=== PATIENT | female | born 1990 | race Caucasian/White ===

== ENCOUNTER 2019-10-05 01:34 | Emergency (ER) | payer OTHER ==
[~2019-10-05] VITALS: Ht 165.1 cm; Wt 81.6 kg
[2019-10-05 01:38] VITALS: BP 168/112
--- NOTE | 2019-10-05 01:45 | NUR ---
PT AMBULATED TO BED 7 WITH STEADY GAIT
--- NOTE | 2019-10-05 01:52 | NUR ---
29 YO F BIB SELF FOR C/C OF 5/10 URINARY PAIN WITH FREQUENCY AND L FLANK PAIN. PT STATES THAT SYMPTOMS BEGAN 1 DAY AGO. PT TOOK 800 MG OF ADVIL FOR PAIN WITH NO RELIEF OF SYMPTOMS. PT DENIES HEMATURIA, , N/V/D, FEVER, COUGH, SOB, AND TRAVEL. BED LOCKED AND IN LOWEST POSITION. SIDE RAILS X1. NKA MED HX: KIDNEY STONES NO RX
--- NOTE | 2019-10-05 01:52 | NUR ---
Dr. Acevedo examining patient.
[2019-10-05] MEDS ORDERED: SULFAMETH/TRIMETH DS 800/160MG 1 TAB PO ONE (01:55)
[2019-10-05] MEDS ORDERED: PHENAZOPYRIDINE 100 MG TAB PO ONE (01:55)
[2019-10-05 02:13] VITALS: BP 168/112
--- NOTE | 2019-10-05 02:13 | NUR ---
Patient discharged with v/s stable. Written and verbal after care instructions given and explained. Patient alert, oriented and verbalized understanding of instructions. Ambulatory with steady gait. All questions addressed prior to discharge. ID band removed. Patient advised to follow up with PMD. Rx of BACTRIM, PYRIDIUM given. Patient educated on indication of medication including possible reaction and side effects. Opportunity to ask questions provided and answered.
== END 2019-10-05 02:13 | disposition home or self-care (01) ==
LOC: MED 01:34
DX: N39.0 Urinary tract infection, site not specified (principal); Z87.19 Personal history of other diseases of the digestive system; Z98.890 Other specified postprocedural states
CPT/HCPCS: 81002; 81025; 99283

== ENCOUNTER 2020-04-09 01:46 | Emergency (ER) | payer OTHER ==
[~2020-04-09] VITALS: Ht 165.1 cm; Wt 81.6 kg
[2020-04-09 02:00] VITALS: BP 164/100
--- NOTE | 2020-04-09 02:03 | NUR ---
TO LOBBY A/W BED AMBULATORY
--- NOTE | 2020-04-09 03:05 | NUR ---
SEEN AND EXAMINED BY ZENAIDA WITH ORDERS AND CARRIED OUT.
[2020-04-09 03:06] LABS: APPEARANCE,URINE SL CLOUDY (CLEAR); BILIRUBIN,URINE NEGATIVE (NEGATIVE); BLOOD, URINE NEGATIVE (NEGATIVE); COLOR,URINE YELLOW (YELLOW); LEUKOCYTE ESTERASE ,URINE NEGATIVE (NEGATIVE); NITRITE, URINE NEGATIVE (NEGATIVE); PH,URINE 6.5 (5.0-9.0); UGLUCOSE NEGATIVE (NEGATIVE)
[2020-04-09] MEDS ORDERED: MORPHINE SULFATE 4 MG/ML SYR IM ONE (03:15)
[2020-04-09 03:17] LABS: RBC,URINE 0-5 /HPF (0-5)
--- NOTE | 2020-04-09 03:20 | NUR ---
MEDICATED PER ERMDS ORDER, TOLERATED WELL
[2020-04-09 03:41] LABS: ANION GAP 12.1 (8-16); CARBON DIOXIDE 24.2 mmol/L (21-32); CREATININE 0.8 mg/dL (0.6-1.3); POTASSIUM 4.3 mmol/L (3.5-5.1)
--- NOTE | 2020-04-09 04:50 | NUR ---
ALL RESULTS BACK AND NOTED BY ERMD AND FOR D/C
[2020-04-09 05:15] VITALS: BP 138/89
== END 2020-04-09 05:15 | disposition home or self-care (01) ==
LOC: MED 01:46
DX: N39.0 Urinary tract infection, site not specified (principal)
CPT/HCPCS: 36415; 80048; 81001; 81025; 87086; 99283; J2270

== ENCOUNTER 2020-05-13 00:40 | Emergency (ER) | payer OTHER ==
[~2020-05-13] VITALS: Ht 165.1 cm; Wt 81.2 kg
[2020-05-13 00:47] VITALS: BP 180/100
[2020-05-13] MEDS ORDERED: KETOROLAC 60 MG/2 ML VIAL IM ONE (01:00)
[2020-05-13] MEDS ORDERED: ONDANSETRON 4 MG ODT PO ONE (01:05)
[2020-05-13 01:11] VITALS: BP 180/100
== END 2020-05-13 01:11 | disposition home or self-care (01) ==
LOC: MED 00:40
DX: K08.89 Other specified disorders of teeth and supporting structures (principal); I10 Essential (primary) hypertension; Z98.890 Other specified postprocedural states
CPT/HCPCS: 96372; 99283; J1885; Q0162

== ENCOUNTER 2020-06-21 20:18 | Emergency (ER) | payer OTHER ==
[~2020-06-21] VITALS: Ht 165.1 cm; Wt 81.6 kg
[2020-06-21 20:32] VITALS: BP 205/114
--- NOTE | 2020-06-21 21:00 | NUR ---
29 Y FEMALE CAME IN WITH TOOTHACHE. PT STATES THAT SHE HAD HER DENTAL TREATMENT 2 WEEKS AGO. SHE IS CURRENTLTY TAKING IBUPROFEN. DENIES N/V/D; SKIN IS PINK/WARM/DRY; AAOX4 WITH EVEN AND STEADY GAIT; LUNGS CLEAR BL; HR EVEN AND REGULAR; PT DENIES ANY FEVER, CP, SOB, OR COUGH AT THIS TIME; PATIENT STATES PAIN OF 9/10 AT THIS TIME RADIATING TO THE RIGHT SIDE OF THE HEAD THAT STARTED THIS MORNING; VSS; PATIENT POSITIONED FOR COMFORT; HOB ELEVATED; BEDRAILS UP X2; BED DOWN. ER MADE AWARE OF PT STATUS. MEDHX: DENIES LMP WAS 06/20/20 NKA Addendum: 06/21/20 at 2118 by KIRA LUMP IN THE UPPER MOUTH
--- NOTE | 2020-06-21 21:12 | NUR ---
DR. SCHROEDER CAME TO SEE PT AT BEDSIDE
[2020-06-21] MEDS ORDERED: HYDR-5080 PO (21:18)
[2020-06-21] MEDS ORDERED: CLIN-223 PO (21:18)
[2020-06-21] MEDS: MORPHINE SULFATE 2 MG/ML SYR IM ONE (21:34)
[2020-06-21] MEDS: CLINDAMYCIN 150 MG CAP PO ONE (21:36)
--- NOTE | 2020-06-21 21:55 | NUR ---
Patient discharged with v/s stable. Written and verbal after care instructions given and explained. Patient alert, oriented and verbalized understanding of instructions. Ambulatory with steady gait. All questions addressed prior to discharge. ID band removed. Patient advised to follow up with PMD. Rx of CLINDAMYCIN AND NORCO given. Patient educated on indication of medication including possible reaction and side effects. Opportunity to ask questions provided and answered.
[2020-06-21 21:59] VITALS: BP 155/100
== END 2020-06-21 21:57 | disposition home or self-care (01) ==
LOC: MED 20:18
DX: K04.7 Periapical abscess without sinus (principal); I10 Essential (primary) hypertension; Z79.899 Other long term (current) drug therapy
CPT/HCPCS: 96372; 99283; J2270

== ENCOUNTER 2020-07-20 23:00 | Emergency (ER) | payer OTHER ==
[~2020-07-20] VITALS: Ht 165.1 cm; Wt 72.6 kg
[~2020-07-20 23:00] MED LIST: CLIN-223 PO; HYDR-5080 PO
[2020-07-20 23:02] VITALS: BP 170/90
--- NOTE | 2020-07-20 23:02 | NUR ---
TO BED AMBULATORY
--- NOTE | 2020-07-20 23:14 | NUR ---
SEE COMPLETE ASSESSMENT. PAIN IS 8/10 THROBBING PAIN IN THE RIGHT UPPER CORNER OF MOUTH. PATIENT STATES, "I'M GETTING WORK DONE AND I NOTICED TWO DAYS AGO THAT IT HURT AND MY RETAINERS DO NOT FIT. I HAVE A FOLLOW UP APPOINTMENT WITH MY DENTIST THIS COMING WEDNESDAY". NO BLEEDING; SLIGHT REDNESS NOTED IN THE UPPER RIGHT GUM. MISSING TOOTH NOTED. NKDA PMH: HTN; GALLSTONES; KIDNEY STONES MEDS: LABETALOL
[2020-07-20] MEDS ORDERED: KETOROLAC 60 MG/2 ML VIAL IM ONE (23:20)
--- NOTE | 2020-07-20 23:36 | NUR ---
Dr. Hernandez examining patient.
[2020-07-20] MEDS ORDERED: ACET-8386 PO (23:45)
--- NOTE | 2020-07-21 00:03 | NUR ---
Patient discharged with v/s stable. Written and verbal after care instructions given and explained. Patient alert, oriented and verbalized understanding of instructions. Ambulatory with steady gait. All questions addressed prior to discharge. ID band removed. Patient advised to follow up with PMD. Rx of HYDROCODONE/ACETAMINOPHEN given. Patient educated on indication of medication including possible reaction and side effects. Opportunity to ask questions provided and answered.
[2020-07-21 00:05] VITALS: BP 150/88
[2020-07-21] MEDS ORDERED: ACET-8386 PO (00:36)
== END 2020-07-21 00:03 | disposition home or self-care (01) ==
LOC: MED 23:00
DX: K08.89 Other specified disorders of teeth and supporting structures (principal); I10 Essential (primary) hypertension; N20.0 Calculus of kidney; Z79.899 Other long term (current) drug therapy
CPT/HCPCS: 96372; 99283; J1885

== ENCOUNTER 2020-09-08 22:18 | Emergency (ER) | payer OTHER ==
[~2020-09-08] VITALS: Ht 165.1 cm; Wt 79.8 kg
[~2020-09-08 22:18] MED LIST changes: +ACET-8386 PO
[2020-09-08 22:34] VITALS: BP 156/109
--- NOTE | 2020-09-08 22:38 | NUR ---
PT AMBULATORY TO LOBBY TO A/W BED.
--- NOTE | 2020-09-08 23:07 | NUR ---
PT SEEN AND ASSESSED BY ZENAIDA. NO NURSING CARE PROVIDED FOR THIS PATIENT
[2020-09-08] MEDS ORDERED: TAMS0.4C96 PO (23:09)
[2020-09-08] MEDS ORDERED: LABE100T9 PO (23:09)
[2020-09-08] MEDS ORDERED: HYDR-5080 PO (23:09)
--- NOTE | 2020-09-08 23:14 | NUR ---
Patient discharged with v/s stable. Written and verbal after care instructions given and explained. Patient alert, oriented and verbalized understanding of instructions. Ambulatory with steady gait. All questions addressed prior to discharge. ID band removed. Patient advised to follow up with PMD. Rx of NORCO, LABETALOL, AND FLOMAX given. Patient educated on indication of medication including possible reaction and side effects. Opportunity to ask questions provided and answered.
== END 2020-09-08 23:14 | disposition home or self-care (01) ==
LOC: MED 22:18
DX: Z76.0 Encounter for issue of repeat prescription (principal); I10 Essential (primary) hypertension; Z87.442 Personal history of urinary calculi
CPT/HCPCS: 99281

== ENCOUNTER 2020-09-25 19:18 | Emergency (ER) | payer OTHER ==
[~2020-09-25] VITALS: Ht 167.6 cm; Wt 81.2 kg
[~2020-09-25 19:18] MED LIST changes: +LABE100T9 PO; +TAMS0.4C96 PO
[2020-09-25 19:25] VITALS: BP 179/101
--- NOTE | 2020-09-25 20:01 | NUR ---
PATIENT AMBUALTED TO BED 5 WITH STEADY GAIT.
[2020-09-25] MEDS ORDERED: ACET-8386 PO ×2 (20:40→20:45)
[2020-09-25] MEDS ORDERED: TAMS0.4C96 PO (20:40)
[2020-09-25] MEDS ORDERED: LABE100T9 PO (20:40)
[2020-09-25] MEDS ORDERED: HYDR-5191 PO (20:43)
[2020-09-25] MEDS ORDERED: IRON65TA PO (20:43)
[2020-09-25 21:00] VITALS: BP 158/98
--- NOTE | 2020-09-25 21:00 | NUR ---
Patient discharged with v/s stable. Written and verbal after care instructions given and explained. Patient alert, oriented and verbalized understanding of instructions. Ambulatory with steady gait. All questions addressed prior to discharge. ID band removed. Patient advised to follow up with PMD. Rx of HYDROCODONE/ACETAMINOPHEN, FERROUS SULFATE, LABETALOL, FLOMAX given. Patient educated on indication of medication including possible reaction and side effects. Opportunity to ask questions provided and answered.
== END 2020-09-25 21:00 | disposition home or self-care (01) ==
LOC: MED 19:18
DX: Z87.448 Personal history of other diseases of urinary system (principal); I10 Essential (primary) hypertension; Z76.0 Encounter for issue of repeat prescription
CPT/HCPCS: 99281

== ENCOUNTER 2020-10-07 19:24 | Emergency (ER) | payer OTHER ==
[~2020-10-07] VITALS: Ht 165.1 cm; Wt 77.1 kg
[~2020-10-07 19:24] MED LIST changes: +IRON65TA PO
[2020-10-07 19:30] VITALS: BP 182/111
--- NOTE | 2020-10-07 19:38 | NUR ---
PT AMBULATED TO BED 12
--- NOTE | 2020-10-07 19:44 | NUR ---
Dr. Hernandez examining patient.
[2020-10-07] MEDS ORDERED: TAMS0.4C96 PO (19:47)
[2020-10-07] MEDS ORDERED: ACET-8386 PO (19:47)
[2020-10-07] MEDS ORDERED: IRON65TA PO (19:47)
--- NOTE | 2020-10-07 19:48 | NUR ---
Note undone in EDM - 10/07/20 at 2007 by EUFEMIA Patient discharged with v/s stable. Written and verbal after care instructions given and explained. Patient alert, oriented and verbalized understanding of instructions. Ambulatory with steady gait. All questions addressed prior to discharge. ID band removed. Patient advised to follow up with PMD. Rx of Feosol, flomax, hydrocodon-acetaminophen given. Patient educated on indication of medication including possible reaction and side effects. Opportunity to ask questions provided and answered.
--- NOTE | 2020-10-07 19:48 | NUR ---
BIB SELF FOR PRESCRIPTION REFILL. PT DENIES ANY PAIN OR DISCOMFORT AT THIS TIME. AAOx4. Elevated BP and patient reports not taking scheduled medication. PMH: CHRONIC KIDNEY STONES, HTN NKDA
[2020-10-07 20:04] VITALS: BP 162/118
--- NOTE | 2020-10-07 20:04 | NUR ---
Patient discharged with v/s stable. Written and verbal after care instructions given and explained. Patient alert, oriented and verbalized understanding of instructions. Ambulatory with steady gait. All questions addressed prior to discharge. ID band removed. Patient advised to follow up with PMD. Rx of Feosol, flomax, hydrocodon-acetaminophen given. Patient educated on indication of medication including possible reaction and side effects. Opportunity to ask questions provided and answered.
== END 2020-10-07 20:04 | disposition home or self-care (01) ==
LOC: MED 19:24
DX: N20.0 Calculus of kidney (principal); I10 Essential (primary) hypertension; Z76.0 Encounter for issue of repeat prescription; Z79.899 Other long term (current) drug therapy
CPT/HCPCS: 99281

== ENCOUNTER 2020-10-21 19:02 | Emergency (ER) | payer OTHER ==
[~2020-10-21] VITALS: Ht 165.1 cm; Wt 78.9 kg
[2020-10-21 19:09] VITALS: BP 159/97
--- NOTE | 2020-10-21 19:15 | NUR ---
PT TAKEN TO BED 3
--- NOTE | 2020-10-21 19:17 | NUR ---
MEDICATION REFILL REQUEST: NIFEDIPINE ER 60 MG ONCE A DAY FLOMAX 4 MG BID NORCO 5/325 Q 6 HOURS PRN AAOX4. VSS. MED HX: HTN, CHRONIC KIDNEY STONES ALLERGIES: BACLOFEN
--- NOTE | 2020-10-21 19:46 | NUR ---
ERMD AT BEDSIDE EXAMINING PATIENT
[2020-10-21] MEDS ORDERED: HYDROcodone/APAP 5/325 MG 1 TAB TAB PO ONE (20:10)
--- NOTE | 2020-10-21 20:13 | NUR ---
PATIENT REFUSED TO PROVIDE URINE AND REFUSED MEDICATION. MADE AWARE.
[2020-10-21] MEDS ORDERED: TAMS0.4C96 PO (20:16)
[2020-10-21 20:22] VITALS: BP 160/103
--- NOTE | 2020-10-21 20:22 | NUR ---
Patient discharged with v/s stable. Written and verbal after care instructions given and explained. Patient alert, oriented and verbalized understanding of instructions. Ambulatory with steady gait. All questions addressed prior to discharge. ID band removed. Patient advised to follow up with PMD. Rx of FLOMAX given. Patient educated on indication of medication including possible reaction and side effects. Opportunity to ask questions provided and answered.
== END 2020-10-21 20:22 | disposition home or self-care (01) ==
LOC: MED 19:02
DX: R10.9 Unspecified abdominal pain (principal); I10 Essential (primary) hypertension; Z79.899 Other long term (current) drug therapy; Z88.8 Allergy status to other drugs, medicaments and biological substances; Z87.442 Personal history of urinary calculi
CPT/HCPCS: 99283

== ENCOUNTER 2020-10-28 22:02 | Emergency (ER) | payer OTHER ==
[~2020-10-28] VITALS: Ht 165.1 cm; Wt 77.1 kg
[2020-10-28 22:15] VITALS: BP 178/84
--- NOTE | 2020-10-28 22:17 | NUR ---
TO LOBBY A/W AMBULATORY
--- NOTE | 2020-10-28 23:52 | NUR ---
PT AMBULATED TO CHAIR A
[2020-10-29] MEDS ORDERED: FERR-20 PO (00:08)
[2020-10-29] MEDS ORDERED: LABE100T9 PO (00:08)
[2020-10-29] MEDS ORDERED: TAMS0.4C96 PO (00:08)
[2020-10-29 00:40] VITALS: BP 178/84
--- NOTE | 2020-10-29 00:40 | NUR ---
PT LEFT WITHOUT D/C INSTRUCTIONS
== END 2020-10-29 00:40 | disposition home or self-care (01) ==
LOC: MED 22:02
DX: I10 Essential (primary) hypertension (principal); Z76.0 Encounter for issue of repeat prescription; Z79.899 Other long term (current) drug therapy; Z88.8 Allergy status to other drugs, medicaments and biological substances; Z87.442 Personal history of urinary calculi
CPT/HCPCS: 99281

== ENCOUNTER 2020-12-23 22:44 | Emergency (ER) | payer OTHER ==
[~2020-12-23] VITALS: Ht 165.1 cm; Wt 79.4 kg
[~2020-12-23 22:44] MED LIST changes: +FERR-20 PO
[2020-12-23 23:05] VITALS: BP 157/100
--- NOTE | 2020-12-23 23:08 | NUR ---
TO LOBBY A/W BED AMBULATORY
[2020-12-23] MEDS ORDERED: NACL 0.9% 1,000 ML IV SCH (23:25)
[2020-12-23] MEDS ORDERED: KETOROLAC 30 MG/ML VIAL IVP ONE (23:25)
[2020-12-23] MEDS ORDERED: ONDANSETRON 4 MG/2 ML VIAL IVP ONE (23:25)
[2020-12-23 23:50] LABS: APPEARANCE,URINE CLEAR (CLEAR); BILIRUBIN,URINE NEGATIVE (NEGATIVE); BLOOD, URINE 3+ (NEGATIVE); COLOR,URINE DARK YELLOW (YELLOW); LEUKOCYTE ESTERASE ,URINE TRACE (NEGATIVE); NITRITE, URINE POSITIVE (NEGATIVE); UGLUCOSE NEGATIVE (NEGATIVE)
[2020-12-23 23:50] LABS: BASOPHILS # (AUTO) 0.1 K/uL (0.00-0.22); BASOPHILS % (AUTO) 0.8 % (0.0-2.0); EOSINOPHILS % (AUTO) 0.7 % (0.0-4.0); HEMATOCRIT 25.3 % (36-48); HEMOGLOBIN 7.6 g/dL (12.0-16.0); MEAN CORPUSCULAR HEMOGLOBIN 22 pg (27-31); MEAN CORPUSCULAR HGB CONC 30 g/dL (33-37); MEAN CORPUSCULAR VOLUME 71.9 fL (80-94); MONOCYTES # (AUTO) 0.3 K/uL (0.8-1.0); MONOCYTES % (AUTO) 5.4 % (1.7-9.3); NEUTROPHILS # (AUTO) 3.5 K/uL (1.8-7.7); NEUTROPHILS % (AUTO) 59.1 % (42.2-75.2); PLATELET COUNT (AUTO) 319 K/uL (140-450); RED BLOOD CELL COUNT(AUTO) 3.51 MIL/uL (4.20-5.40); RED CELL DISTRIBUTION WIDTH 18.3 % (11.6-13.7)
[2020-12-24 00:07] LABS: RBC,URINE TOO NUMEROUS TO COUN /HPF (0-5)
[2020-12-24 00:15] LABS: ANION GAP 11.9 (8-16); CARBON DIOXIDE 24.9 mmol/L (21-32); CREATININE 0.9 mg/dL (0.6-1.3); POTASSIUM 3.8 mmol/L (3.5-5.1); TOTAL BILIRUBIN 0.3 mg/dL (0.0-1.0)
--- NOTE | 2020-12-24 02:02 | NUR ---
AMBULATED TO ER BED 2
[2020-12-24] MEDS ORDERED: KETOROLAC 30 MG/ML VIAL ONE (02:13)
[2020-12-24] MEDS ORDERED: ONDANSETRON 4 MG/2 ML VIAL ONE (02:13)
[2020-12-24] MEDS ORDERED: CIPR500T9 PO (02:26)
[2020-12-24] MEDS ORDERED: PHEN-1877 PO (02:26)
[2020-12-24] MEDS ORDERED: IBUP-2218 PO (02:26)
[2020-12-24] MEDS ORDERED: MORPHINE SULFATE 2 MG/ML SYR IVP ONE (02:50)
[2020-12-24] MEDS ORDERED: cefTRIAXone 1,000 MG VIAL ONE (03:42)
[2020-12-24] MEDS ORDERED: diphenhydrAMINE 50 MG/ML VIAL IVP ONE (04:10)
--- NOTE | 2020-12-24 04:45 | NUR ---
IV removed, catheter intact and site benign. Applied folded 4x4 gauze and tape to stop bleeding.
[2020-12-24 04:56] VITALS: BP 168/100
--- NOTE | 2020-12-24 04:56 | NUR ---
Patient discharged with v/s stable. Written and verbal after care instructions given and explained. Patient alert, oriented and verbalized understanding of instructions. Ambulatory with steady gait. All questions addressed prior to discharge. ID band removed. Patient advised to follow up with PMD. Rx of CIPROFLOXACIN HCL, IBUPROFEN, PYRIDIUM given. Patient educated on indication of medication including possible reaction and side effects. Opportunity to ask questions provided and answered.
[2020-12-24] MEDS ORDERED: LABE200T9 PO (19:28)
--- NOTE | 2020-12-25 22:33 | NUR ---
LATE ENTRY- ROCEPHIN IVPB DISCONTINUED AT 0420.
== END 2020-12-24 04:56 | disposition home or self-care (01) ==
LOC: MED 22:44
DX: N12 Tubulo-interstitial nephritis, not specified as acute or chronic (principal); R11.0 Nausea; R30.0 Dysuria; I10 Essential (primary) hypertension; Z98.890 Other specified postprocedural states; Z79.899 Other long term (current) drug therapy; Z88.5 Allergy status to narcotic agent; Z88.8 Allergy status to other drugs, medicaments and biological substances
CPT/HCPCS: 36415; 74176; 80053; 81001; 81025; 83690; 84703; 85025; 87086; 96361; 96365; 96375; 99284; J0696; J1200; J1885; J2270; J2405; J7030

== ENCOUNTER 2020-12-24 17:01 | Emergency (ER) | payer OTHER ==
[~2020-12-24] VITALS: Ht 165.1 cm; Wt 77.1 kg
[~2020-12-24 17:01] MED LIST changes: +CIPR500T9 PO; +IBUP-2218 PO; +PHEN-1877 PO
[2020-12-24 18:14] VITALS: BP 160/106
[2020-12-24] MEDS ORDERED: LABE200T9 PO (19:28)
--- NOTE | 2020-12-24 20:25 | NUR ---
PT CALLED ON PERSONAL PHONE BECUASE PT COULD NOT BE FOUND IN LOBBY OR OUTSIDE. NO ANSWER. PT LEFT FACILITY WITHOUT DISCHARGE INSTRUCTION.
== END 2020-12-24 20:25 | disposition home or self-care (01) ==
LOC: MED 17:01
DX: I10 Essential (primary) hypertension (principal); Z76.0 Encounter for issue of repeat prescription; Z88.6 Allergy status to analgesic agent; Z88.5 Allergy status to narcotic agent; Z79.899 Other long term (current) drug therapy
CPT/HCPCS: 99281

== ENCOUNTER 2021-01-08 18:01 | Emergency (ER) | payer OTHER ==
[~2021-01-08 18:01] MED LIST changes: +LABE200T9 PO
--- NOTE | 2021-01-08 18:15 | NUR ---
Went to tent to attempt to triage pt, there is no pt by this name in tent/parking lot or lobby.
--- NOTE | 2021-01-08 18:37 | NUR ---
ATTEMPTED TO CALL PT AGAIN, NO ANSWER
--- NOTE | 2021-01-08 18:48 | NUR ---
PATIENT LEFT WITHOUT BEING SEEN BY DR. MONTELONGO. NO FURTHER CARE PROVIDED FOR PATIENT. PT NOT TRIAGED
== END 2021-01-08 18:48 | disposition left against medical advice (07) ==
LOC: MED 18:01
DX: Z53.21 Procedure and treatment not carried out due to patient leaving prior to being seen by health care provider (principal)

== ENCOUNTER 2022-09-22 06:25 | Emergency (ER) | payer OTHER ==
[~2022-09-22] VITALS: Ht 165.1 cm; Wt 81.6 kg
[~2022-09-22 06:25] MED LIST changes: -ACET-8386 PO; +ACET-8905 PO; +LABE100T63 PO; -LABE100T9 PO; +LABE200T12 PO; -LABE200T9 PO
[2022-09-22 06:32] VITALS: BP 145/95
--- NOTE | 2022-09-22 06:47 | NUR ---
PT TO BED 8
--- NOTE | 2022-09-22 06:54 | NUR ---
32 Y/O F FROM HOME PRESENTS WITH L FLANK PRESSURE WITH PAIN DURING URINATION WITH BURNING, DRIBBLING, CHILLS. PT A&OX4, SKIN INTACT, RESPIRATIONS EVEN AND UNLABORED. PT HAS HEMATURIA. PMH- KIDNEY STONES NKA
[2022-09-22] MEDS ORDERED: KETOROLAC 30 MG/ML VIAL IM ONE (07:00)
--- NOTE | 2022-09-22 07:12 | NUR ---
Pt report given to EUGENE DEAN. Transfer of care at this time.
[2022-09-22 07:13] LABS: BASOPHILS # (AUTO) 0.1 K/uL (0.00-0.22); BASOPHILS % (AUTO) 0.6 % (0.0-2.0); EOSINOPHILS # (AUTO) 0.1 K/uL (0-0.4); EOSINOPHILS % (AUTO) 0.9 % (0.0-4.0); HEMATOCRIT 24.8 % (36-48); HEMOGLOBIN 7.5 g/dL (12.0-16.0); LYMPHOCYTES # (AUTO) 1.4 K/uL (2.5-16.5); LYMPHOCYTES % (AUTO) 15.1 % (20.5-51.1); MEAN CORPUSCULAR HEMOGLOBIN 19 pg (27-31); MEAN CORPUSCULAR HGB CONC 30 g/dL (33-37); MEAN CORPUSCULAR VOLUME 61.6 fL (80-94); MONOCYTES # (AUTO) 0.6 K/uL (0.8-1.0); MONOCYTES % (AUTO) 5.8 % (1.7-9.3); NEUTROPHILS # (AUTO) 7.5 K/uL (1.8-7.7); NEUTROPHILS % (AUTO) 77.6 % (42.2-75.2); PLATELET COUNT (AUTO) 302 K/uL (140-450); RED BLOOD CELL COUNT(AUTO) 4.02 MIL/uL (4.20-5.40); RED CELL DISTRIBUTION WIDTH 17.9 % (11.6-13.7); WHITE BLOOD COUNT (AUTO) 9.6 K/uL (4.8-10.8)
[2022-09-22 07:16] LABS: APPEARANCE,URINE CLEAR (CLEAR); BILIRUBIN,URINE NEGATIVE (NEGATIVE); BLOOD, URINE 3+ (NEGATIVE); COLOR,URINE YELLOW (YELLOW); LEUKOCYTE ESTERASE ,URINE TRACE (NEGATIVE); NITRITE, URINE NEGATIVE (NEGATIVE); PH,URINE 6.5 (5.0-9.0); UGLUCOSE NEGATIVE (NEGATIVE)
[2022-09-22 07:28] LABS: RBC,URINE 20-50 /HPF (0-5)
[2022-09-22 07:29] LABS: ALBUMIN 4.1 g/dL (3.4-5.0); ANION GAP 12.3 (8-16); CARBON DIOXIDE 25.2 mmol/L (21-32); CREATININE 0.6 mg/dL (0.6-1.3); POTASSIUM 3.5 mmol/L (3.5-5.1); TOTAL BILIRUBIN 0.3 mg/dL (0.0-1.0)
--- NOTE | 2022-09-22 07:38 | NUR ---
First contact with pt. Pt is resting in bed, has been notified of positive preg test. Pt is a/o x 4, vss, no ss of acute distress, breathing equal and unlabored, speech clear. MD currently at bedside.
[2022-09-22] MEDS ORDERED: HYDROcodone/APAP 5/325 MG 1 TAB TAB PO ONE (07:40)
[2022-09-22] MEDS ORDERED: CEFP200T20 PO (07:53)
[2022-09-22 08:02] VITALS: BP 157/68
--- NOTE | 2022-09-22 08:22 | NUR ---
Patient discharged with v/s stable. Written and verbal after care instructions given and explained. Patient alert, oriented and verbalized understanding of instructions. Ambulatory with steady gait. All questions addressed prior to discharge. ID band removed. Patient advised to follow up with PMD. Aware of Px. Patient educated on indication of medication including possible reaction and side effects. Opportunity to ask questions provided and answered.
== END 2022-09-22 08:23 | disposition home or self-care (01) ==
LOC: MED 06:25
DX: O23.41 Unspecified infection of urinary tract in pregnancy, first trimester (principal); I10 Essential (primary) hypertension; Z88.8 Allergy status to other drugs, medicaments and biological substances; Z79.899 Other long term (current) drug therapy; Z88.5 Allergy status to narcotic agent; Z87.442 Personal history of urinary calculi
CPT/HCPCS: 36415; 80053; 81001; 81025; 85025; 87086; 99284